=== PATIENT | female | born 1940 | race Hispanic/Latino ===

== ENCOUNTER 2019-10-03 11:47 | Emergency (ER) | payer OTHER ==
[~2019-10-03] VITALS: Ht 167.6 cm; Wt 84.8 kg
[~2019-10-03 11:47] MED LIST: AMLODIPINE BESYL5 MG PO; ATENOLOL50 MG PO; CALCIUM600 MG PO; CIPRO500 MG PO; CLONAZEPAM0.5 MG PO; COLACE100 MG PO; FUROSEMIDE40 MG PO; KLOR-CON 1010 MEQ PO; KLOR-CON M2020 MEQ PO; LASIX40 MG PO; LISINOPRIL20 MG PO; MAGNESIUM250 M1 PO; METOCLOPRAMIDE10 MG PO; MIRALAX17 GM PO; NORTRIPTYLINE H25 MG PO; OMEPRAZOLE40 MG PO; PRIMIDONE50 MG PO; PROCARDIA XL30 MG PO; SENOKOT8.6 MG PO; ULTRAM50 MG PO; ZIAC 5-6.25 MG1 EACH; ZOCOR10 MG PO
[2019-10-03 12:08] VITALS: BP 133/68
[2019-10-03] MEDS ORDERED: TRAMADOL HCL 50 MG TAB PO ONE (13:00)
--- NOTE | 2019-10-03 13:54 | Diagnostic Imaging Report ---
Examination: CT BRAIN WO CONTRAST History:Fall with head injury. Comparison studies:None Technique: Axial images were obtained from the skull base to the vertex. Coronal and sagittal images reconstructed from the axial data. Dose modulation, iterative reconstruction, and/or weight based adjustment of the mA/kV was utilized to reduce the radiation dose to as low as reasonably achievable. Intravenous contrast: None Findings: Scalp: No abnormalities. Bones: No fractures, blastic or lytic lesions. Brain sulci: Appropriate for age. Ventricles: Normal in size and configuration. No hydrocephalus. Extra-axial space: No abnormalities. Parenchyma: No masses, hemorrhage, or acute or chronic cortical based vascular insults.. Sellar/suprasellar region: No abnormalities. Craniocervical junction: Patent foramen magnum. No Chiari one malformation. Incidental findings: Atherosclerotic calcification of the cavernous and supraclinoid internal carotid and V4 segments of the bilateral vertebral arteries. Impression: No acute intracranial abnormality.. Signed by: Dr. Elyse Talamantes M.D. on 10/03/2019 1:51 PM
--- NOTE | 2019-10-03 14:11 | Diagnostic Imaging Report ---
Exam: Right shoulder 2 views Clinical History: Right shoulder pain Findings: There is no evidence of acute fracture or malalignment. The articular joints are well-preserved. The soft tissue is unremarkable. Impression: No radiographic evidence of acute osseous injury. Signed by: Dr. Art Palomino MD on 10/03/2019 2:09 PM
--- NOTE | 2019-10-03 14:17 | Diagnostic Imaging Report ---
Exam: Right rib series Clinical history: Infection next Findings: There is no evidence of acute fracture or malalignment of the visualized osseous structures. The cardiac size is within normal limits. There is no evidence of pleural effusion, pulmonary consolidation, or pneumothorax. Impression: 1. No radiographic evidence of acute osseous injury. Signed by: Dr. Art Palomino MD on 10/03/2019 2:14 PM
--- NOTE | 2019-10-03 14:26 | Diagnostic Imaging Report ---
Examination: CT CERVICAL SPINE WO CONTRAST HISTORY:Neck pain and injury after fall. COMPARISON:None. TECHNIQUE: Multidetector helical axial images were obtained without contrast from the foramen magnum to T1. Coronal and sagittal reformatted images were done. Bone and soft tissue windows were evaluated. Dose modulation, iterative reconstruction, and/or weight based adjustment of the mA/kV was utilized to reduce the radiation dose to as low as reasonably achievable. FINDINGS: Alignment:Normal alignment and straightening of normal lordosis. Vertebrae: Normal height and density. No acute fracture, infection or neoplasm. Disc space heights: Normal height. Caliber of spinal canal: Developmentally normal. Posterior fossa and craniocervical junction: Foramen magnum patent. No Chiari 1 malformation. Soft tissues: Enlarged and heterogenous thyroid glands. Degenerative changes: C5-C6 and C6-C7: Diffuse disc osteophytes and bilateral uncovertebral arthropathy without canal or foraminal stenosis. No disc herniation or canal stenosis. Visualized lung apices: No abnormalities. IMPRESSION: No acute abnormalities. Signed by: Dr. Elyse Talamantes M.D. on 10/03/2019 2:23 PM
== END 2019-10-03 14:44 | disposition home or self-care (01) ==
LOC: ER 11:47
DX: S40.011A Contusion of right shoulder, initial encounter (principal); M54.6 Pain in thoracic spine; M54.5 Low back pain; W18.30XA Fall on same level, unspecified, initial encounter; Y92.008 Other place in unspecified non-institutional (private) residence as the place of occurrence of the external cause; I10 Essential (primary) hypertension; E11.9 Type 2 diabetes mellitus without complications; E78.5 Hyperlipidemia, unspecified
CPT/HCPCS: 70450; 71101; 72125; 99283

== ENCOUNTER 2021-03-05 14:15 | Inpatient (IN) | payer OTHER ==
[2021-03-04 23:45] VITALS: BP 165/91
[~2021-03-05] VITALS: Ht 167.6 cm; Wt 76.9 kg
[2021-03-05 15:58] LABS: BASOPHILS # (AUTO) 0.1 (0.0-0.1); BASOPHILS % 1.3 % (0.0-1.0); EOSINOPHILS # (AUTO) 0.3 (0.0-0.4); EOSINOPHILS % 4.6 % (0.0-6.0); HEMATOCRIT 33.8 % (34.2-44.1); HEMOGLOBIN 10.2 g/dL (12.0-16.0); LYMPHOCYTES # (AUTO) 1.8 (1.0-3.2); LYMPHOCYTES % 29.9 % (18.0-39.1); MEAN CORPUSCULAR HEMOGLOBIN 25.1 pg (28-32); MEAN CORPUSCULAR HGB CONC 30.2 g/dL (31-35); MEAN CORPUSCULAR VOLUME 83.3 fL (81-99); MONOCYTES # (AUTO) 0.7 (0.2-0.8); MONOCYTES % 11.4 % (4.4-11.3); NEUTROPHILS # (AUTO) 3.2 (2.1-6.9); NEUTROPHILS % 52.5 % (38.7-80.0); PLATELET COUNT 243 x10e3/uL (140-360); RED BLOOD COUNT 4.06 x10e6/uL (3.6-5.1); RED CELL DISTRIBUTION WIDTH 15.7 % (11.7-14.4)
[2021-03-05 16:11] LABS: ALANINE AMINOTRANSFERASE 39 IU/L (0-55); ALBUMIN 4.1 g/dL (3.5-5.0); ALBUMIN/GLOBULIN RATIO 1.1 (0.8-2.0); ALKALINE PHOSPHATASE 79 IU/L (40-150); ANION GAP 17.3 mmol/L (8-16); BLOOD UREA NITROGEN 23 mg/dL (7-26); BUN/CREATININE RATIO 15 (6-25); CALCIUM 8.8 mg/dL (8.4-10.2); CARBON DIOXIDE 27 mmol/L (22-29); CHLORIDE 98 mmol/L (98-107); CREATINE KINASE 90 IU/L (29-168); CREATININE, SERUM 1.53 mg/dL (0.57-1.11); EST GLOMERULAR FILTRATION RATE 33 ML/MIN (60-); GLUCOSE 104 mg/dL (74-118); POTASSIUM 5.3 mmol/L (3.5-5.1); SODIUM 137 mmol/L (136-145)
[2021-03-05] MEDS ORDERED: SODIUM CHLORIDE 0.9% 1000ML 1,000 ML IV SCH (16:45)
[2021-03-05] MEDS ORDERED: SODIUM CHLORIDE 0.9% 1000ML 1,000 ML ONE (19:09)
[2021-03-05] MEDS ORDERED: CLONIDINE HCL0.1 MG PO (21:23)
[2021-03-05] MEDS ORDERED: LASIX20 MG PO (21:23)
[2021-03-05] MEDS ORDERED: CYMBALTA30 MG PO (21:23)
[2021-03-05] MEDS ORDERED: METFORMIN HCL500 MG PO (21:23)
[2021-03-05] MEDS ORDERED: LOSARTAN POTASS25 MG PO (21:23)
[2021-03-05] MEDS ORDERED: METOPROLOL SUCC50 MG PO (21:24)
[2021-03-05] MEDS ORDERED: ALBUTEROL0.63 MG/3 NEB (21:24)
[2021-03-05] MEDS ORDERED: SYMBICORT 80-10.2 GM INH (21:25)
[2021-03-05] MEDS ORDERED: MONTELUKAST SOD10 MG PO (21:26)
[2021-03-05] MEDS ORDERED: KLOR-CON 1010 MEQ PO (21:26)
[2021-03-05] MEDS ORDERED: AMARYL2 MG PO (21:26)
[2021-03-05] MEDS ORDERED: OMEPRAZOLE40 MG PO (21:26)
[2021-03-05] MEDS ORDERED: MYSOLINE50 MG PO (21:29)
[2021-03-05] MEDS: CLONIDINE HCL 0.1 MG TAB PO SCH (21:46)
[2021-03-05] MEDS ORDERED: CLONIDINE HCL 0.1 MG TAB ONE (21:51)
[2021-03-05] MEDS: CLONAZEPAM 0.5 MG TAB PO PRN (23:28)
[2021-03-05 23:45] VITALS: BP 165/91
[2021-03-06] VITALS (8 sets, daily range): BP systolic 152–175; BP diastolic 89–97
[2021-03-06 00:40] LABS: CREATINE KINASE MB 1.3 ng/mL (0-5.0)
[2021-03-06 05:14] LABS: BASOPHILS # (AUTO) 0.1 (0.0-0.1); BASOPHILS % 1.3 % (0.0-1.0); EOSINOPHILS # (AUTO) 0.3 (0.0-0.4); EOSINOPHILS % 5.4 % (0.0-6.0); HEMATOCRIT 30.2 % (34.2-44.1); HEMOGLOBIN 9.2 g/dL (12.0-16.0); LYMPHOCYTES # (AUTO) 2.1 (1.0-3.2); LYMPHOCYTES % 37.8 % (18.0-39.1); MEAN CORPUSCULAR HEMOGLOBIN 25.1 pg (28-32); MEAN CORPUSCULAR HGB CONC 30.5 g/dL (31-35); MEAN CORPUSCULAR VOLUME 82.5 fL (81-99); MONOCYTES # (AUTO) 0.6 (0.2-0.8); MONOCYTES % 11.5 % (4.4-11.3); NEUTROPHILS # (AUTO) 2.4 (2.1-6.9); NEUTROPHILS % 43.6 % (38.7-80.0); PLATELET COUNT 189 x10e3/uL (140-360); RED BLOOD COUNT 3.66 x10e6/uL (3.6-5.1); RED CELL DISTRIBUTION WIDTH 15.5 % (11.7-14.4)
[2021-03-06 05:49] LABS: ANION GAP 12.6 mmol/L (8-16); CALCIUM 8.6 mg/dL (8.4-10.2); CREATININE, SERUM 1.23 mg/dL (0.57-1.11); POTASSIUM 4.6 mmol/L (3.5-5.1)
[2021-03-06] MEDS ORDERED: ACETAMINOPHEN 325 MG TAB PO PRN (06:15)
[2021-03-06 07:09] LABS: CREATINE KINASE MB 1.2 ng/mL (0-5.0)
[2021-03-06] MEDS ORDERED: CLONIDINE HCL 0.1 MG TAB PO SCH (09:00)
[2021-03-06] MEDS: CLONIDINE HCL 0.1 MG TAB PO SCH ×2 (09:06→15:50)
[2021-03-06] MEDS: LOSARTAN POTASSIUM 25 MG TAB PO SCH (09:07)
[2021-03-06] MEDS: METOPROLOL SUCCINATE 50 MG TAB XL PO SCH (09:07)
[2021-03-06] MEDS: CLONAZEPAM 0.5 MG TAB PO PRN (09:07)
[2021-03-06] MEDS ORDERED: ALBUTEROL SULF 0.083% NEB SOLN 3 ML NEB NEB PRN (11:45)
[2021-03-06] MEDS ORDERED: DEXTROSE 50% SYRINGE 50 ML IV PRN (11:45)
[2021-03-06] MEDS: METOCLOPRAMIDE HCL 10 MG TAB PO SCH ×3 (12:00→15:50)
[2021-03-06 12:04] LABS: CHOL/HDL RATIO 3.4 (3.0-3.6)
[2021-03-06 13:47] LABS: CREATINE KINASE MB 1.4 ng/mL (0-5.0)
[2021-03-06] MEDS: GLIMEPIRIDE 2 MG TAB PO SCH (15:49)
[2021-03-06] MEDS: MONTELUKAST SODIUM 10 MG TAB PO SCH (15:50)
[2021-03-06] MEDS: FUROSEMIDE 20 MG TAB PO SCH (15:50)
[2021-03-06] MEDS: INSULIN REGULAR, HUMAN 100 UNIT/1 ML SQ SCH ×2 (16:30→21:00)
[2021-03-06] MEDS: BUDESONIDE/FORMOTEROL FUMARATE 80/4.5MCG 6.9 GM INH AEROSOL IH SCH (19:20)
[2021-03-06] MEDS ORDERED: ACETAMINOPHEN/ASPIRIN/CAFFEINE 1 EA TAB PO PRN (20:00)
[2021-03-06] MEDS ORDERED: ACETAMIN/BUTALBITAL/CAFFEINE TAB PO PRN (20:15)
[2021-03-06] MEDS: SIMVASTATIN 20 MG TAB PO SCH (20:28)
[2021-03-07] VITALS (8 sets, daily range): BP systolic 149–177; BP diastolic 75–110
[2021-03-07 00:11] LABS: FERRITIN 10.73 ng/mL (4.63-204.00)
[2021-03-07] MEDS: CLONIDINE HCL 0.1 MG TAB PO SCH ×2 (05:00→22:04)
[2021-03-07] MEDS: CLONAZEPAM 0.5 MG TAB PO PRN (05:00)
[2021-03-07] MEDS: INSULIN REGULAR, HUMAN 100 UNIT/1 ML SQ SCH ×4 (07:30→21:00)
[2021-03-07] MEDS: BUDESONIDE/FORMOTEROL FUMARATE 80/4.5MCG 6.9 GM INH AEROSOL IH SCH ×2 (08:00→21:50)
[2021-03-07] MEDS: METOCLOPRAMIDE HCL 10 MG TAB PO SCH ×3 (08:00→22:04)
[2021-03-07] MEDS: GLIMEPIRIDE 2 MG TAB PO SCH ×2 (08:00→16:46)
[2021-03-07] MEDS: ASPIRIN 81 MG CHEW TAB PO SCH (08:22)
[2021-03-07] MEDS ORDERED: PANTOPRAZOLE SOD 40 MG TABEC PO SCH (09:00)
[2021-03-07] MEDS: LOSARTAN POTASSIUM 25 MG TAB PO SCH (10:39)
[2021-03-07] MEDS: DULOXETINE HCL 30 MG DELAYED RELEASE PO SCH (10:39)
[2021-03-07] MEDS: PRIMIDONE 50 MG TAB PO SCH (10:39)
[2021-03-07] MEDS: FUROSEMIDE 20 MG TAB PO SCH ×2 (10:39→22:04)
[2021-03-07] MEDS: METOPROLOL SUCCINATE 50 MG TAB XL PO SCH (10:40)
[2021-03-07] MEDS ORDERED: LIDOCAINE HCL 2% LOCAL INJ 5 ML SDV VIAL INJ ONE (13:26)
[2021-03-07] MEDS ORDERED: POVIDONE IODINE 0.05% 0.05 % ML PO ONE (13:26)
[2021-03-07] MEDS: SIMVASTATIN 20 MG TAB PO SCH (22:04)
[2021-03-07] MEDS: MONTELUKAST SODIUM 10 MG TAB PO SCH (22:04)
[2021-03-08 00:26] VITALS: BP 164/96
[2021-03-08 06:10] VITALS: BP 143/95
[2021-03-08] MEDS: BUDESONIDE/FORMOTEROL FUMARATE 80/4.5MCG 6.9 GM INH AEROSOL IH SCH (07:00)
[2021-03-08] MEDS: DULOXETINE HCL 30 MG DELAYED RELEASE PO SCH (08:07)
[2021-03-08] MEDS: METOCLOPRAMIDE HCL 10 MG TAB PO SCH ×2 (08:07→12:20)
[2021-03-08] MEDS: FUROSEMIDE 20 MG TAB PO SCH (08:07)
[2021-03-08] MEDS: ASPIRIN 81 MG CHEW TAB PO SCH (08:07)
[2021-03-08] MEDS: GLIMEPIRIDE 2 MG TAB PO SCH (08:07)
[2021-03-08] MEDS: PRIMIDONE 50 MG TAB PO SCH (08:08)
[2021-03-08] MEDS: METOPROLOL SUCCINATE 50 MG TAB XL PO SCH (08:14)
[2021-03-08] MEDS: CLONIDINE HCL 0.1 MG TAB PO SCH (08:14)
[2021-03-08] MEDS: LOSARTAN POTASSIUM 25 MG TAB PO SCH (08:14)
[2021-03-08] MEDS: INSULIN REGULAR, HUMAN 100 UNIT/1 ML SQ SCH ×2 (08:14→12:41)
[2021-03-08 08:49] VITALS: BP 151/104
[2021-03-08 09:00] VITALS: BP 151/104
[2021-03-08] MEDS: CLONAZEPAM 0.5 MG TAB PO PRN (12:20)
[2021-03-08 12:40] VITALS: BP 161/95
[2021-03-08] MEDS ORDERED: OMEPRAZOLE40 MG PO (12:57)
[2021-03-08] MEDS ORDERED: COLACE100 MG PO (12:57)
[2021-03-08] MEDS ORDERED: FERROUS SULFAT325 MG PO (12:57)
== END 2021-03-08 14:08 | disposition home or self-care (01) | DRG 392 ==
LOC: ER 16:00 → ERHOLD 16:51 → MED/SURG3 23:45 → OBSVTOIN 03-07 14:23
PROVIDERS: ADMIT Internal Medicine; ATTEND Internal Medicine
PROC: 0DB78ZX Excision of Stomach, Pylorus, Via Natural or Artificial Opening Endoscopic, Diagnostic (ICD-10-PCS; 2021-03-07)
PROC: 0DB68ZX Excision of Stomach, Via Natural or Artificial Opening Endoscopic, Diagnostic (ICD-10-PCS; 2021-03-07)
PROC: 0DB98ZX Excision of Duodenum, Via Natural or Artificial Opening Endoscopic, Diagnostic (ICD-10-PCS; principal; 2021-03-07 16:00)
DX: K20.90 Esophagitis, unspecified without bleeding (principal); N17.9 Acute kidney failure, unspecified; E87.6 Hypokalemia; E11.22 Type 2 diabetes mellitus with diabetic chronic kidney disease; I12.9 Hypertensive chronic kidney disease with stage 1 through stage 4 chronic kidney disease, or unspecified chronic kidney disease; N18.2 Chronic kidney disease, stage 2 (mild); E78.5 Hyperlipidemia, unspecified; K29.70 Gastritis, unspecified, without bleeding; K44.9 Diaphragmatic hernia without obstruction or gangrene; K31.7 Polyp of stomach and duodenum; E11.42 Type 2 diabetes mellitus with diabetic polyneuropathy; Z20.822 Contact with and (suspected) exposure to COVID-19; Z90.5 Acquired absence of kidney; Z88.5 Allergy status to narcotic agent; F41.9 Anxiety disorder, unspecified
CPT/HCPCS: 36415; 43239; 71045; 80048; 80053; 80061; 82550; 82553; 82607; 82728; 82746; 82948; 83036; 83540; 83690; 84466; 84484; 85025; 85045; 85379; 88305; 88312; 88342; 93005; 93017; 93306; 94664; 99284; G0378; J2001; J7030; U0002

== ENCOUNTER 2023-01-08 19:46 | Emergency (ER) | payer MEDICARE, OTHER ==
[~2023-01-08] VITALS: Ht 167.6 cm; Wt 74.8 kg
[~2023-01-08 19:46] MED LIST changes: +ALBUTEROL0.63 MG/3 NEB; +AMARYL2 MG PO; +CLONIDINE HCL0.1 MG PO; +CYMBALTA30 MG PO; +FERROUS SULFAT325 MG PO; +LASIX20 MG PO; +LOSARTAN POTASS25 MG PO; +METFORMIN HCL500 MG PO; +METOPROLOL SUCC50 MG PO; +MONTELUKAST SOD10 MG PO; +MYSOLINE50 MG PO; +SYMBICORT 80-10.2 GM INH
[2023-01-08 20:54] LABS: BASOPHILS # (AUTO) 0.1 (0.0-0.1); BASOPHILS % 0.8 % (0.0-1.0); EOSINOPHILS # (AUTO) 0.2 (0.0-0.4); EOSINOPHILS % 4.1 % (0.0-6.0); HEMATOCRIT 27.8 % (34.2-44.1); HEMOGLOBIN 8.1 g/dL (12.0-16.0); LYMPHOCYTES # (AUTO) 1.4 (1.0-3.2); MEAN CORPUSCULAR HEMOGLOBIN 23.6 pg (28-32); MEAN CORPUSCULAR HGB CONC 29.1 g/dL (31-35); MONOCYTES # (AUTO) 0.6 (0.2-0.8); MONOCYTES % 10.2 % (4.4-11.3); NEUTROPHILS # (AUTO) 3.6 (2.1-6.9); NEUTROPHILS % 60.6 % (38.7-80.0); PLATELET COUNT 246 x10e3/uL (140-360); RED BLOOD COUNT 3.43 x10e6/uL (3.6-5.1); RED CELL DISTRIBUTION WIDTH 14.7 % (11.7-14.4)
[2023-01-08 21:20] LABS: ALANINE AMINOTRANSFERASE 27 IU/L (0-55); ALBUMIN 3.8 g/dL (3.5-5.0); ALBUMIN/GLOBULIN RATIO 0.9 (0.8-2.0); ALKALINE PHOSPHATASE 89 IU/L (40-150); ANION GAP 16.2 mmol/L (8-16); BLOOD UREA NITROGEN 43 mg/dL (7-26); BUN/CREATININE RATIO 30 (6-25); CALCIUM 9.1 mg/dL (8.4-10.2); CARBON DIOXIDE 25 mmol/L (22-29); CHLORIDE 101 mmol/L (98-107); CREATINE KINASE 99 IU/L (29-168); CREATININE, SERUM 1.41 mg/dL (0.57-1.11); GLUCOSE 78 mg/dL (74-118); SODIUM 137 mmol/L (136-145)
[2023-01-08 21:22] LABS: POTASSIUM 5.2 mmol/L (3.5-5.1)
[2023-01-08] MEDS ORDERED: DEXTROSE 50% SYRINGE 50 ML IV STA (21:24)
[2023-01-08] MEDS ORDERED: INSULIN REGULAR, HUMAN 100 UNIT/1 ML IV ONE (21:30)
[2023-01-08] MEDS ORDERED: FUROSEMIDE INJ 10 MG/ML 4 ML VIAL IV ONE (21:30)
[2023-01-08] MEDS ORDERED: DEXTROSE 50% SYRINGE 50 ML IV ONE (21:33)
[2023-01-08] MEDS ORDERED: FUROSEMIDE INJ 10 MG/ML 4 ML VIAL ONE (21:33)
[2023-01-08] MEDS ORDERED: INSULIN REGULAR, HUMAN 100 UNIT/1 ML ONE (21:34)
[2023-01-08] MEDS ORDERED: SODIUM CHLORIDE 0.9% 1000ML 1,000 ML IV STA (21:35)
[2023-01-08] MEDS ORDERED: SODIUM CHLORIDE 0.9% 1000ML 1,000 ML ONE (21:37)
[2023-01-08 23:00] VITALS: BP 180/87; PULSE 98; RESP 16; TEMP 98.5; O2SAT 100
== END 2023-01-08 23:01 | disposition home or self-care (01) ==
LOC: ER 19:50
DX: E87.5 Hyperkalemia (principal); N28.9 Disorder of kidney and ureter, unspecified; I10 Essential (primary) hypertension; E13.40 Other specified diabetes mellitus with diabetic neuropathy, unspecified; E78.5 Hyperlipidemia, unspecified
CPT/HCPCS: 36415; 71045; 80053; 82550; 82553; 83690; 83880; 84484; 85025; 93005; 99284; J1940; J7030; J7799